=== PATIENT | male | born 1955 | race Caucasian/White ===

== ENCOUNTER 2019-10-30 08:25 | Outpatient (CLI) | payer BC ==
--- NOTE | 2019-10-30 08:46 | ULT ---
COMPLETE ABDOMEN ULTRASOUND INDICATION: Elevated LFTs TECHNIQUE: Grayscale, color Doppler and spectral Doppler were obtained of the abdomen. COMPARISON: None FINDINGS: Liver: Diffuse fatty infiltration. The liver measures 17 cm in its greatest longitudinal dimension. Main portal vein: Patent with appropriate hepatopedal flow Pancreas: Visualized aspects appeared normal. Gallbladder: Normal. No sonographic Alvarado's sign reported. Common bile duct:5.5 mm. Right kidney: The right kidney measured 10.9 x 4.6 x 4.0 cm. No focal renal lesion or hydronephrosis is evident. Left kidney: The left kidney measured 11.7 x 6.7 x 5.6 cm. No focal renal lesion or hydronephrosis is demonstrated. Aorta and IVC: Appeared within normal limits. Spleen: 9.9cm in length. No focal splenic lesion is evident. Free fluid: None. IMPRESSION: 1. Hepatomegaly with fatty infiltration
== END 2019-10-30 08:26 | disposition home or self-care (01) ==
LOC: BICULT 08:25
PROVIDERS: ATTEND Family Medicine
DX: R74.8 Abnormal levels of other serum enzymes (principal); K76.0 Fatty (change of) liver, not elsewhere classified
CPT/HCPCS: 93975

== ENCOUNTER 2021-04-07 06:51 | Outpatient (CLI) | payer BC | END 2021-04-07 06:52 | disposition home or self-care (01) | LOC: BICULT 06:51 | PROVIDERS: ATTEND Physician Assistant Medical | DX: R79.89 Other specified abnormal findings of blood chemistry (principal); K76.0 Fatty (change of) liver, not elsewhere classified | CPT/HCPCS: 76705 ==